=== PATIENT | female | born 1995 | race Caucasian/White ===

== ENCOUNTER 2019-03-28 17:30 | Emergency (ER) | payer MEDICAID, SELFPAY ==
[2019-03-28 17:32] VITALS: BP 162/108; PULSE 90; RESP 16; TEMP 37.1; O2SAT 99; BMI 23.6
[2019-03-28 18:04] LABS: Add Urine Microscopic? NO
[2019-03-28 18:11] LABS: HCG Qualitative Urine. Negative (Negative)
[2019-03-28 18:14] LABS: Bilirubin Urine Neg (NEGATIVE); Blood Urine Neg (Negative); Glucose Urine UA Norm (Normal); Ketones Urine Negative (Negative); Leukocyte Esterase Urine Negative (Negative); Nitrate Urine Negative (Negative); Protein Urine Neg (Negative); Sulfosalicylic Acid Urine Negative; Urine Appearance Clear (CLEAR); Urine Color Yellow (Yellow); Urobilinogen Urine Norm (Negative); pH Urine 8 (5-7)
[2019-03-28 18:25] LABS: Basophils % 0.4 %; Eosinophils % 0.1 %; Hematocrit 41.2 % (37.0-47.0); Hemoglobin 13.4 g/dL (11.5-15.3); Lymphocytes # 0.6 10^3/uL (0.8-4.8); Lymphocytes % 7.7 %; Mean Corpuscular HGB Conc 32.5 g/dL (30.0-36.0); Mean Corpuscular Hemoglobin 27.2 pg (28.0-34.0); Mean Corpuscular Volume 83.6 fL (81-99); Monocytes # 0.4 10^3/uL (0.2-0.9); Monocytes % 4.3 %; Neutrophils # 7.3 10^3/uL (1.8-7.7); Neutrophils % 87.3 %; Nucleated Red Blood Cells % 0 %; Platelet Count 226 10^3/cmm (130-400); Red Blood Count 4.93 10^6/uL (4.1-5.3); Red Cell Distribution Width 14.3 % (12.1-15.1); White Blood Count 8.4 10^3/uL (4.0-10.0)
[2019-03-28 18:38] LABS: Alanine Aminotransferase 19 U/L (0-33); Albumin Level 4.5 g/dL (3.5-5.2); Alkaline Phosphatase 92 IU/L (35-105); Anion Gap 15.9 (5-19); Aspartate Amino Transferase 21 U/L (0-32); Blood Urea Nitrogen 4 mg/dL (6-20); Calcium 9.3 mg/dL (8.5-10.5); Carbon Dioxide 25 mmol/L (22-29); Chloride 101 mmol/L (98-107); Glomerular Filtration Rate 121.8 mL/min (90-130); Glucose 115 mg/dL (74-109); Lipase 8 U/L (13-60); Potassium 3.9 mmol/L (3.5-5.1); Sodium 138 mmol/L (136-145); Total Bilirubin 0.3 mg/dL (0.15-1.2); Total Protein 7.5 g/dL (6.6-8.7)
--- NOTE | 2019-03-28 18:54 | ED_ITS ---
HPI - General Adult General: Chief complaint: Abdominal Pain Stated complaint: Fever/n/v with blood Time Seen by Provider: 03/28/19 18:48 History of Present Illness: HPI narrative: Patient is been around child and other people over the last few days has had stomach flu and she presents with the same signs and symptoms. Patient does not have any abdominal pain presently but that she did throw up 3-4 times a day. Feels better now. complaint: ge Onset (ago): hour(s) Location: abdomen Radiation: non-radiation Severity: mild Exacerbating factors: none Associated symptoms: Reports nausea and vomiting (Vomited [address] ringy blood in it but that is now resolved patient feels much better now); Deny chest pain, dyspnea, headache(s) or rash Treatments prior to arrival: none Review of Systems Const: Denies: fever, chills or body aches Eyes: Denies: change in vision or blurry vision ENMT: Denies: throat pain or nasal congestion Card: Denies: chest pain or shortness of breath on exertion Resp: Denies: shortness of breath, productive cough or non-productive cough GI: Reports: nausea and vomiting (Vomited 1 time and had some stringy blood in it but that is now resolved patient feels much better now); Denies: abdominal pain Musc: Denies: extremity pain Skin/Breast: Denies: rash Neuro: Denies: headache Psych: Denies: anxiety or depression Juan Jose/Lymph: Denies: easy bruising PFSH ED PFSH: Statuses (acute, chronic, etc) shown below reflect problem list status as previously entered and may not be historically accurate Social History Smoking and tobacco status: current every day smoker Physical Exam Const: COMMON NORMALS: no apparent distress, average body habitus and oriented x3 HENMT: COMMON NORMALS: normocephalic HEAD & SCALP: normal to inspection and normocephalic FACE & SINUS: normal facial exam Eye: COMMON NORMALS: conjunctivae normal GENERAL EYE: normal appearance of both eyes CONJUNCTIVA: Yes conjunctivae normal Neck/C-Spine: COMMON NORMALS: no JVD Chest: COMMONS NORMALS: inspection of chest normal Resp: COMMON NORMALS: normal respiratory effort and clear to auscultation bilaterally AUSCULTATION: clear to auscultation bilaterally Cardio: COMMON NORMALS: no JVD, regular rate and regular rhythm RATE: regular rate RHYTHM: regular rhythm GI: COMMON NORMALS: normal to inspection, nondistended, normoactive bowel sounds Extremity: COMMON NORMALS: normal to inspection and full ROM Neuro: COMMON NORMALS: oriented x3 Course Vital Signs: Vital signs: Vital Signs Temperature 98.8 F 03/28/19 17:32 Pulse Rate 90 03/28/19 17:32 Respiratory Rate 16 03/28/19 17:32 Blood Pressure 162/108 03/28/19 17:32 Pulse Oximetry 99 03/28/19 17:32 [facility] - General Adult Lab Data: Labs: Lab Results 03/28/19 03/28/19 03/28/19 Range/Units 18:00 18:00 18:13 WBC 8.4 (4.0-10.0) 10^3/ uL RBC 4.93 (4.1-5.3) 10^6/u L Hgb 13.4 (11.5-15.3) g/dL Hct 41.2 (37.0-47.0) % MCV 83.6 (81-99) fL MCH 27.2 L (28.0-34.0) pg MCHC 32.5 (30.0-36.0) g/dL RDW 14.3 (12.1-15.1) % Plt Count 226 (130-400) 10^3/c mm MPV 10.0 (7.4-10.4) fL Neut % (Auto) 87.3 % Lymph % (Auto) 7.7 % Morris % (Auto) 4.3 % Eos % (Auto) 0.1 % Baso % (Auto) 0.4 % Neut # (Auto) 7.3 (1.8-7.7) 10^3/u L Lymph # (Auto) 0.6 L (0.8-4.8) 10^3/u L Morris # (Auto) 0.4 (0.2-0.9) 10^3/u L Eos # (Auto) 0.0 (0.0-0.8) 10^3/u L Baso # (Auto) 0.0 (0.0-0.1) 10^3/u L Nucleated RBC % (a uto) 0 % Nucleated RBCs # 0.0 /100WBC Sodium (136-145) mmol/L Potassium (3.5-5.1) mmol/L Chloride (98-107) mmol/L Carbon Dioxide (22-29) mmol/L Anion Gap (5-19) BUN (6-20) mg/dL Creatinine (0.5-0.9) mg/dL GFR Calculation (90-130) mL/min Glucose (74-109) mg/dL Calcium (8.5-10.5) mg/dL Total Bilirubin (0.15-1.2) mg/dL AST (0-32) U/L ALT (0-33) U/L Alkaline Phosphata se (35-105) IU/L Total Protein (6.6-8.7) g/dL Albumin (3.5-5.2) g/dL Globulin (1.3-4.6) g/dL Lipase (13-60) U/L HCG, Qual Negative (Negative) Urine Color Yellow (Yellow) Urine Appearance Clear (CLEAR) Urine pH 8 H (5-7) Ur Specific Gravit y 1.010 (1.005-1.030) Urine Protein Neg (Negative) Urine Glucose (UA) Norm (Normal) Urine Ketones Negative (Negative) Urine Occult Blood Neg (Negative) Urine Nitrate Negative (Negative) Urine Bilirubin Neg (NEGATIVE) Prot Sulfosalicyli c Acd Negative Urine Urobilinogen Norm (Negative) mg/dL Ur Leukocyte Marry ase Negative (Negative) 03/28/19 Range/Units 18:13 WBC (4.0-10.0) 10^3/ uL RBC (4.1-5.3) 10^6/u L Hgb (11.5-15.3) g/dL Hct (37.0-47.0) % MCV (81-99) fL MCH (28.0-34.0) pg MCHC (30.0-36.0) g/dL RDW (12.1-15.1) % Plt Count (130-400) 10^3/c mm MPV (7.4-10.4) fL Neut % (Auto) % Lymph % (Auto) % Morris % (Auto) % Eos % (Auto) % Baso % (Auto) % Neut # (Auto) (1.8-7.7) 10^3/u L Lymph # (Auto) (0.8-4.8) 10^3/u L Morris # (Auto) (0.2-0.9) 10^3/u L Eos # (Auto) (0.0-0.8) 10^3/u L Baso # (Auto) (0.0-0.1) 10^3/u L Nucleated RBC % (a uto) % Nucleated RBCs # /100WBC Sodium 138 (136-145) mmol/L Potassium 3.9 (3.5-5.1) mmol/L Chloride 101 (98-107) mmol/L Carbon Dioxide 25 (22-29) mmol/L Anion Gap 15.9 (5-19) BUN 4 L (6-20) mg/dL Creatinine 0.6 (0.5-0.9) mg/dL GFR Calculation 121.8 (90-130) mL/min Glucose 115 H (74-109) mg/dL Calcium 9.3 (8.5-10.5) mg/dL Total Bilirubin 0.3 (0.15-1.2) mg/dL AST 21 (0-32) U/L ALT 19 (0-33) U/L Alkaline Phosphata se 92 (35-105) IU/L Total Protein 7.5 (6.6-8.7) g/dL Albumin 4.5 (3.5-5.2) g/dL Globulin 3.0 (1.3-4.6) g/dL Lipase 8 L (13-60) U/L HCG, Qual (Negative) Urine Color (Yellow) Urine Appearance (CLEAR) Urine pH (5-7) Ur Specific Gravit y (1.005-1.030) Urine Protein (Negative) Urine Glucose (UA) (Normal) Urine Ketones (Negative) Urine Occult Blood (Negative) Urine Nitrate (Negative) Urine Bilirubin (NEGATIVE) Prot Sulfosalicyli c Acd Urine Urobilinogen (Negative) mg/dL Ur Leukocyte Marry ase (Negative) Discharge Plan Discharge Patient Disposition: Home, Self-Care Clinical Impression: Gastroenteritis Condition: Stable Prescriptions: New ondansetron 8 mg tablet,disintegrating 8 mg PO Q8H PRN (Reason: nausea and vomiting) 3 Days Qty: 10 RF: 0 Discharge Orders: Discharge Order (Routine); Ordered 03/28/19 Ordered By: Bello Burns Referrals: Edith Sullivan MD [Family Provider] - Discharge Diet: Advance as tolerated Discharge Activity: Increase activity as tolerated Patient Instructions: Gastroenteritis (ED) Activity Restrictions/Additional Instructions: Follow-up with medical provider as directed. Take medications as prescribed. Return to the ER or your medical provider if condition worsens. Please read and understand discharge instructions. If any questions ask please. Increase fluids slowly. Coding Level of Care Code ED Gift Wrapper for Mary Jimenez
[2019-03-28 19:04] VITALS: BP 122/68; PULSE 78; RESP 18; O2SAT 96
== END 2019-03-28 19:05 | disposition home or self-care (01) ==
PROVIDERS: Emergency Medicine; Emergency Provider Nurse Practitioner Family; Family Provider Family Medicine
DX: K52.9 Noninfective gastroenteritis and colitis, unspecified (principal); F17.210 Nicotine dependence, cigarettes, uncomplicated
CPT/HCPCS: 36415; 80053; 81003; 81025; 83690; 85025; 99282; 99283

== ENCOUNTER → 2019-04-24 14:06 | Outpatient (BNVA) | payer MEDICAID, SELFPAY | PROVIDERS: Family Provider Family Medicine; Referring Provider Registered Nurse; Visit Provider Specialist | DX: M25.522 Pain in left elbow (principal) | CPT/HCPCS: 73080 ==

== ENCOUNTER 2019-08-13 18:09 | Emergency (ER) | payer MEDICAID, SELFPAY ==
[2019-08-13 18:15] VITALS: BP 164/120; PULSE 105; RESP 18; TEMP 36.7; O2SAT 97; BMI 25.0
--- NOTE | 2019-08-13 18:36 | ED_ITS ---
HPI - Skin/Abscess/Foreign Bdy General: Chief complaint: Skin/Abscess/Foreign Body Stated complaint: right eye swollen shut Time Seen by Provider: 08/13/19 18:21 History of Present Illness: HPI narrative: 23-year-old female with a history of staph infections presents with right-sided forehead and eyelid swelling. She states that she had a hard knot formed on her right side of her forehead a few days ago. She saw a nurse practitioner and was placed on some Bactrim for likely staph infection. She said it began to drain last night. This afternoon she began to have significant swelling of her eyelid just inferior to the abscess drainage. She notes that she had been on steroids, and just stopped yesterday, and that she had been using heat to draw out the infection. No fever. No vomiting. MD complaint: rash and abscess/boil Onset (ago): day(s) Location: face Associated symptoms: Deny chills, fever(s), nausea or vomiting Review of Systems Const: Denies: fever(s) or chills Eyes: Denies: change in vision or blurry vision ENMT: Denies: swelling of lips/tongue, bleeding gums, change in hearing, e pistaxis or sinus pain Card: Denies: chest pain, palpitations or irregular heart rhythm Resp: Denies: dyspnea, productive cough, non-productive cough or wheezing GI: Denies: abdominal pain, nausea or vomiting : Denies: dysuria Musc: Denies: neck pain Skin/Breast: Reports: rash and erythema; Denies: pruritus Neuro: Denies: headache(s), dizziness or vertigo Psych: Denies: anxiety PFS ED PFSH: Medical History (Updated 08/13/19 @ 19:04 by Guillermo Kiser DO) Olecranon bursitis of left elbow Social History Smoking and tobacco status: current every day smoker Physical Exam Const: GENERAL APPEARANCE: well developed ORIENTATION/CONSCIOUSNESS: Yes oriented to person, Yes oriented to place and Yes oriented to time HENMT: COMMON NORMALS: normocephalic, external ears normal and Normal external nose present HEAD & SCALP: normocephalic; no scalp tenderness FACE & SINUS: normal facial exam NOSE: Normal external nose present and No nasal discharge present EXTERNAL EAR: Yes external ears normal MOUTH: tongue normal TEETH & GINGIVA: Yes abnormal tooth and associated gingiva THROAT: posterior oropharynx normal; no peritonsillar mass Eye: COMMON NORMALS: Equal, round and reactive pupils present, EOMs intact bilaterally and conjunctivae normal EYELID: eyelid abnormality right upper eyelid (Significant swelling. Minimal tenderness no redness or streaking.) CONJUNCTIVA: Yes conjunctivae normal PUPIL: Yes Equal, round and reactive pupils present Neck/C-Spine: COMMON NORMALS: full ROM GENERAL: No tracheal deviation Chest: COMMONS NORMALS: normal inspection of the chest CHEST: No tenderness Resp: COMMON NORMALS: clear to auscultation bilaterally EFFORT & INSPECTION: No tachypneic, No respiratory distress, No retractions, No uses accessory muscles and No tracheal deviation AUSCULTATION: clear to auscultation bilaterally, no rhonchi, no wheezes and lung sounds not diminished Cardio: COMMON NORMALS: regular rate and regular rhythm RATE: regular rate RHYTHM: regular rhythm HEART SOUNDS: no murmurs PERIPHERAL PULSES: radial pulses present GI: INSPECTION: No abdominal distension AUSCULTATION: No Hyperactive bowel sounds present and No Hypoactive bowel sounds present PALPATION: No Rigid due to palpation Neuro: SENSORIUM/ORIENTATION: Yes oriented to person, Yes oriented to place and Yes oriented to time Psych: COMMON NORMALS: mental status grossly normal Skin: GENERAL SKIN EXAM: other (Open draining abscess to right forehead, good fluctuance, little induration, no streaking. Exam of the eye reveals a normal conjunctive a and sclera. There is no pain with extraocular movements. Her vision on that side is normal.) Course Vital Signs: Vital signs: Vital Signs Temperature 98.1 F 08/13/19 18:15 Pulse Rate 105 H 08/13/19 18:15 Respiratory Rate 16 08/13/19 19:25 Blood Pressure 164/120 08/13/19 18:15 Pulse Oximetry 97 08/13/19 18:15 MDM - Skin/Abscess/Foreign Bdy MDM Narrative: Medical decision making narrative: Drainage sent for culture. We will add doxycycline to her Bactrim she started as an outpatient. Steroids for swelling. She was told to use ice packs for the swelling of the eyelid as well. She knows to return for worsening symptoms, especially vision changes or pain with eye movement. Discharge Plan Discharge Patient Disposition: Home, Self-Care Clinical Impression: Abscess of skin or subcutaneous tissue Qualifiers: Site of cutaneous abscess: face Qualified Code(s): L02.01 - Cutaneous abscess of face Condition: Stable Prescriptions: New doxycycline hyclate 100 mg capsule 100 mg PO Q12H 10 Days Qty: 20 RF: 0 Medrol (Mike) 4 mg tablets,dose pack See Rx Instructions .ROUTE .COMPLEX Qty: 21 RF: 0 No Action buprenorphine HCl 8 mg tablet, sublingual 8 mg SUBLINGUAL DAILY RF: 0 Discharge Orders: Discharge Order (Routine); Ordered 08/13/19 Ordered By: Guillermo Kiser Referrals: Edith Sullivan MD [Primary Care Provider] - Radha Bailey FNP [Referring] - 4-7 days Discharge Diet: Usual diet Discharge Activity: Resume usual activity Patient Instructions: Abscess (ED) Activity Restrictions/Additional Instructions: Return for worsening swelling of her eyelid despite treatment, streaking redness, fever greater than 100, impaired vision, pain with eye movements, other concerning symptoms. Discharge Date/Time: 08/13/19 19:25 Coding Level of Care Code ED Diesel Tractor Operator for Tobiasg Fwd Exam Comprehensive
[2019-08-13] MEDS: dexamethasone 10 mg/mL INJ 8 MG IM (19:13)
[2019-08-13] MEDS: doxycycline 100 mg Tablet PO (19:14)
[2019-08-13 19:25] VITALS: RESP 16
== END 2019-08-13 19:25 | disposition home or self-care (01) ==
PROVIDERS: Emergency Provider Emergency Medicine; PCP Family Medicine
DX: L02.01 Cutaneous abscess of face (principal); F17.210 Nicotine dependence, cigarettes, uncomplicated
CPT/HCPCS: 12345; 87070; 87075; 87077; 87186; 87205; 96372; 99282; 99283; J1100

== ENCOUNTER → 2019-09-04 08:24 | Outpatient (BNVA) | payer MEDICAID, SELFPAY | PROVIDERS: PCP Registered Nurse; Referring Provider Registered Nurse; Visit Provider Specialist | DX: M70.22 Olecranon bursitis, left elbow (principal); G62.9 Polyneuropathy, unspecified | CPT/HCPCS: 95909 ==

== ENCOUNTER → 2019-11-08 09:29 | Outpatient (BNVA) | payer MEDICAID, SELFPAY | PROVIDERS: PCP Registered Nurse; Referring Provider Registered Nurse; Visit Provider Specialist | DX: G62.9 Polyneuropathy, unspecified (principal); G61.81 Chronic inflammatory demyelinating polyneuritis; F17.210 Nicotine dependence, cigarettes, uncomplicated | CPT/HCPCS: 99205 ==

== ENCOUNTER 2019-11-30 14:03 | Outpatient (CLI) | payer MEDICAID, SELFPAY ==
--- NOTE | 2019-11-30 14:10 | MR_ITS ---
WS: [id number] MRI LEFT FOOT without CONTRAST. COMPARISON: None Multiplanar, multisequence imaging is performed without contrast. Patient was unable to complete the examination with contrast due to back pain. There is increased T2 signal lateral to the cuboid and proximal fifth metatarsal which extends over a length of 1.7 cm and a width of 0.8 cm. The underlying cuboid and proximal fifth metatarsal marrow s ignal is normal. There is no edema. The remaining bones of the foot are also normal. No fluid along t he tendon sheaths. No joint effusion. MR/MR foot LT wo con* [id number] IMPRESSION: 1. Patient was unable to complete examination with contrast. Therefore, osteom yelitis cannot be completely excluded. 2. There is a soft tissue ulcer/inflammatory process just lateral to the cuboi d and proximal fifth metatarsal measuring 1.7 x 0.8 cm. 3. No edema within the adjacent osseous structures.
== END 2019-11-30 14:04 | disposition home or self-care (01) ==
LOC: RADSHAW 14:09
PROVIDERS: PCP Registered Nurse; Visit Provider Registered Nurse
DX: L02.612 Cutaneous abscess of left foot (principal); L97.529 Non-pressure chronic ulcer of other part of left foot with unspecified severity
CPT/HCPCS: 73718

== ENCOUNTER 2019-12-13 13:01 | Outpatient (CLI) | payer MEDICAID, SELFPAY | END 2019-12-13 13:02 | disposition home or self-care (01) | LOC: WOUND 13:01 | PROVIDERS: PCP Registered Nurse; Visit Provider Nurse Practitioner Family | DX: L97.322 Non-pressure chronic ulcer of left ankle with fat layer exposed (principal) | CPT/HCPCS: 11042; G0463 ==

== ENCOUNTER 2019-12-20 13:20 | Outpatient (CLI) | payer MEDICAID, SELFPAY | END 2019-12-20 13:21 | disposition home or self-care (01) | LOC: WOUND 13:21 | PROVIDERS: PCP Registered Nurse; Visit Provider Thoracic Surgery (Cardiothoracic Vascular Surgery) | DX: L97.522 Non-pressure chronic ulcer of other part of left foot with fat layer exposed (principal) | CPT/HCPCS: 11042 ==

== ENCOUNTER 2019-12-27 13:50 | Outpatient (CLI) | payer MEDICAID, SELFPAY | END 2019-12-27 13:51 | disposition home or self-care (01) | LOC: WOUND 13:51 | PROVIDERS: PCP Registered Nurse; Visit Provider Thoracic Surgery (Cardiothoracic Vascular Surgery) | DX: L97.522 Non-pressure chronic ulcer of other part of left foot with fat layer exposed (principal) | CPT/HCPCS: 11042 ==

== ENCOUNTER 2020-01-09 11:22 | Outpatient (CLI) | payer MEDICAID, SELFPAY | END 2020-01-09 11:23 | disposition home or self-care (01) | LOC: WOUND 11:22 | PROVIDERS: PCP Registered Nurse; Visit Provider Thoracic Surgery (Cardiothoracic Vascular Surgery) | DX: L97.522 Non-pressure chronic ulcer of other part of left foot with fat layer exposed (principal) | CPT/HCPCS: 11042 ==

== ENCOUNTER 2020-01-17 14:05 | Outpatient (CLI) | payer MEDICAID, SELFPAY | END 2020-01-17 14:06 | disposition home or self-care (01) | LOC: WOUND 14:05 | PROVIDERS: PCP Registered Nurse; Visit Provider Nurse Practitioner Family | DX: L97.522 Non-pressure chronic ulcer of other part of left foot with fat layer exposed (principal) | CPT/HCPCS: 11042 ==

== ENCOUNTER 2020-02-07 09:46 | Outpatient (CLI) | payer MEDICAID, SELFPAY | END 2020-02-07 09:47 | disposition home or self-care (01) | LOC: WOUND 09:46 | PROVIDERS: PCP Registered Nurse; Visit Provider Nurse Practitioner Family | DX: L97.522 Non-pressure chronic ulcer of other part of left foot with fat layer exposed (principal) | CPT/HCPCS: 11042 ==

== ENCOUNTER 2020-02-14 10:18 | Outpatient (CLI) | payer MEDICAID, SELFPAY | END 2020-02-14 10:19 | disposition home or self-care (01) | LOC: WOUND 10:19 | PROVIDERS: PCP Registered Nurse; Visit Provider Thoracic Surgery (Cardiothoracic Vascular Surgery) | DX: L97.522 Non-pressure chronic ulcer of other part of left foot with fat layer exposed (principal) | CPT/HCPCS: 11042 ==

== ENCOUNTER 2020-02-28 10:33 | Outpatient (CLI) | payer MEDICAID, SELFPAY | END 2020-02-28 10:34 | disposition home or self-care (01) | LOC: WOUND 10:33 | PROVIDERS: PCP Registered Nurse; Visit Provider Nurse Practitioner Family | DX: Z09 Encounter for follow-up examination after completed treatment for conditions other than malignant neoplasm (principal) | CPT/HCPCS: 99212 ==

== ENCOUNTER → 2020-04-17 09:48 | Outpatient (BNVA) | payer MEDICAID, SELFPAY | PROVIDERS: PCP Registered Nurse; Visit Provider Specialist | DX: G61.81 Chronic inflammatory demyelinating polyneuritis (principal); F17.210 Nicotine dependence, cigarettes, uncomplicated | CPT/HCPCS: 99214 ==

== ENCOUNTER → 2020-06-18 08:01 | Outpatient (BNVA) | payer MEDICAID, SELFPAY | PROVIDERS: PCP Registered Nurse; Visit Provider Specialist | DX: G61.81 Chronic inflammatory demyelinating polyneuritis (principal); F17.210 Nicotine dependence, cigarettes, uncomplicated | CPT/HCPCS: 99214 ==

== ENCOUNTER 2022-01-28 19:13 | Emergency (ER) | payer MEDICAID, SELFPAY ==
[2022-01-28 19:25] VITALS: BMI 24.0
[2022-01-28 19:34] VITALS: BP 210/111; PULSE 94; RESP 18; TEMP 36.6; O2SAT 96
--- NOTE | 2022-01-28 20:01 | ED_ITS ---
HPI - Eye Problem General: Chief complaint: Eye Problems Stated complaint: Swollen Eyes History of Present Illness: 26-year-old female comes in today for complaints of swelling of the eyes. Patient was seen at an emergency room in [place] and was given dexamethasone and a dose of Benadryl p.o. Patient reported continued swelling of the eyes. Patient denies any other abnormalities. Patient does use make-up. 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 Patient had talked to her infusion nurse who recommended that she wash off all make up. Patient denies any fever or pain just some mild discomfort around the right eye where the swelling is the worst. Review of Systems Eyes: Reports: other (Periorbital swelling) [facility] ED PFSH: Medical History CIDP (chronic inflammatory demyelinating polyneuropathy) Hypertension Olecranon bursitis of left elbow Peripheral neuropathy Family History Other CAD (coronary artery disease) Hypertension Myocardial infarction Stroke Denies family history of Diabetes Social History Smoking and tobacco status: current every day smoker cigarettes Packs smoked per day: 1 Alcohol intake: never History of recent travel: No Physical Exam Const: COMMON NORMALS: alert HENMT: HEAD & SCALP: other (Facial swelling) NOSE: Normal nares present THROAT: posterior oropharynx normal Eye: PERIORBITAL: periorbital findings abnormal positive bilateral (Increased on the right) periorbital swelling Neck/C-Spine: COMMON NORMALS: full ROM Resp: COMMON NORMALS: normal respiratory effort and clear to auscultation bilaterally AUSCULTATION: clear to auscultation bilaterally Cardio: COMMON NORMALS: regular rate and regular rhythm RATE: regular rate RHYTHM: regular rhythm Extremity: COMMON NORMALS: full ROM Neuro: SENSORIUM/ORIENTATION: Yes alert Skin: COMMON NORMALS: turgor normal GENERAL SKIN EXAM: turgor normal Course ED course: 2049, 30 minutes after given diphenhydramine IM no changes were noted and swelling to the face, blood pressure remained elevated, and patient had some wheezing in lung dixon. I recommended 0.3 mg of epinephrine IM for concerns of anaphylaxis. Patient reported understanding agreed to plan. 2124, patient had some reduction in the swelling around the right eye. Patient reports no increase abnormality. Patient reports jitteriness has improved since receiving the epinephrine. Patient denies any chest pain or difficulty breathing. Lungs clear to auscultation. Vital Signs: Vital signs: Vital Signs Temperature 97.8 F 01/28/22 19:34 Pulse Rate 76 01/28/22 20:44 Respiratory Rate 18 01/28/22 20:44 Blood Pressure 179/108 01/28/22 20:44 Pulse Oximetry 98 01/28/22 20:44 Oxygen Delivery Me thod 01/28/22 20:44 MDM - Eye Problem Medical Decision Making 6-year-old female comes in today with worsening swelling around the eyes. Patient has been the first evaluated and treated at [place] ER with dexamethasone and Benadryl. Patient was coming home and had increasing swelling to the area around the face and eyes. On exam lungs had some wheezing, patient had some elevated blood pressure, and significant swelling to the face. No swelling was noted to the tongue and airway remained intact. Vital signs were normal except for elevation of blood pressure. Differential diagnosis includes anaphylaxis, allergic reaction, cellulitis. 50 mg of Benadryl was given IM and patient was monitored for 30 minutes without any improvement in symptoms. Patient was then given 0.3 mg of epinephrine IM. After 15 minutes patient had significantly reduced swelling to the eyes and face. Patient was monitored for an hour afterwards and no recurrence of swelling and continued improvement was noted. Patient was discharged home with prescription for epinephrine and recommended to follow-up with primary care. Discharge Plan Discharge Patient Disposition: Home Clinical Impression: Anaphylactic reaction Qualifiers: Encounter type: initial encounter Qualified Code(s): T78.2XXA - Anaphylactic shock, unspecified, initial encounter Condition: Stable Prescriptions: New epinephrine 0.3 mg/0.3 mL auto-injector 0.3 mg IM Q15M PRN (Reason: anaphylaxis) Qty: 2 0RF Rx Instructions: for 2 doses No Action buprenorphine HCl 8 mg tablet, sublingual 8 mg SUBLINGUAL DAILY ibuprofen [IBU] 600 mg tablet 600 mg PO Q8H PRN metoprolol tartrate 25 mg tablet 12.5 mg PO BID bumetanide 2 mg tablet 2 mg PO DAILY famotidine 20 mg tablet 20 mg PO BID prednisone 5 mg tablet 5 mg PO DAILY Qty: 30 0RF Rx Instructions: Take 1 tablet daily for one month prednisone 5 mg tablet See Rx Instructions .ROUTE .COMPLEX Qty: 15 0RF Rx Instructions: Take one tablet every other day (odd days) Xulane 150-35 mcg/24 hr patch weekly 1 patch TRANSDERMA Q7D Rx Instructions: apply once weekly for 3 weeks of a 4-week cycle potassium gluconate 595 mg (99 mg) tablet 595 mg PO BID multivitamin Tablet 1 tab PO DAILY lisinopril 5 mg tablet 5 mg PO DAILY Discharge Orders: Discharge ED (Routine); Ordered 01/28/22 Ordered By: Vamshi Sosa Referrals: Radha Bailey FNP [Primary Care Provider] - Discharge Diet: Usual diet Discharge Activity: Increase activity as tolerated Patient Instructions: Anaphylaxis (ED) Activity Restrictions/Additional Instructions: Continue with Benadryl as needed for itching and rash. Drink plenty of fluids. Follow-up with primary care for further instruction. Return to ER for worsening symptoms such as chest pain, increased shortness of breath, fever greater than 100.4, or new concerns. Coding Level of Care Code ED Insulation Worker Apprentice for Tobiasg Fwd Exam Comprehensive
[2022-01-28] MEDS: diphenhydrAMINE 50 mg/mL SDV 1mL IM (20:18)
[2022-01-28 20:44] VITALS: BP 179/108; PULSE 76; RESP 18; O2SAT 98
[2022-01-28] MEDS: EPINEPHrine 1 mg/mL INJ 0.3 MG IM (21:02)
== END 2022-01-28 21:55 | disposition home or self-care (01) ==
PROVIDERS: Emergency Provider Nurse Practitioner Family; PCP Registered Nurse
DX: T78.2XXA Anaphylactic shock, unspecified, initial encounter (principal); F17.210 Nicotine dependence, cigarettes, uncomplicated; I10 Essential (primary) hypertension; G61.81 Chronic inflammatory demyelinating polyneuritis
CPT/HCPCS: 96372; 99284; J0171; J1200

== ENCOUNTER 2022-01-29 07:16 | Emergency (ER) | payer MEDICAID, SELFPAY ==
[2022-01-29 07:29] VITALS: BP 171/108; PULSE 86; RESP 14; TEMP 36.9; O2SAT 97; BMI 24.0
[2022-01-29 07:33] VITALS: BP 173/110; PULSE 96; RESP 16; O2SAT 99
--- NOTE | 2022-01-29 08:13 | ED_ITS ---
HPI - Allergic Reaction General: Chief complaint: Allergic Reaction Stated complaint: Allergic reaction Time Seen by Provider: 01/29/22 07:17 Source: patient Mode of arrival: ambulatory Limitations: no limitations History of Present Illness: HPI narrative: 26-year-old female presents emergency room with swelling of her face. She is allergic reaction several days ago she was seen given epi subcu swelling is gone down she was discharged home she also agreed to go with a steroid at that time she has rebound swelling now just of the face no difficulty speaking or swallowing. She is been using some antihistamines no oral steroids. MD complaint: allergic reaction Onset (ago): day(s) Exposure: unknown Associated symptoms: Reports facial swelling; Deny abdominal pain, difficulty breathing, dysphagia, hoarseness, nausea, tongue swelling or vomiting Severity: moderate Treatment prior to arrival: benadryl, epinephrine and steroids Previous Allergic Reaction History: prior ED visit(s) Review of Systems Const: Denies: fever(s), chills, body aches, change in appetite, fatigue or malaise ENMT: Denies: throat pain, uvular edema, odynophagia or hoarseness Card: Denies: chest pain, palpitations, irregular heart rhythm, edema, dyspnea on exertion or orthopnea Resp: Denies: dyspnea, productive cough, non-productive cough, wheezing or stridor GI: Denies: abdominal pain, nausea, vomiting or dysphagia : Denies: flank pain, difficulty voiding, dysuria, urinary frequency or urinary urgency Musc: Denies: neck pain Skin/Breast: Denies: rash or pruritus All/Imm: Reports: facial swelling; Denies: tongue swelling PFS ED PFSH: Medical History CIDP (chronic inflammatory demyelinating polyneuropathy) Hypertension Olecranon bursitis of left elbow Peripheral neuropathy Family History Other CAD (coronary artery disease) Hypertension Myocardial infarction Stroke Denies family history of Diabetes Social History Smoking and tobacco status: current every day smoker cigarettes Packs smoked per day: 1 Alcohol intake: never History of recent travel: No Physical Exam Const: COMMON NORMALS: no acute distress GENERAL APPEARANCE: cooperative and comfortable ORIENTATION/CONSCIOUSNESS: Yes awake, Yes oriented to person, Yes oriented to place and Yes oriented to time HENMT: COMMON NORMALS: normocephalic, atraumatic and hearing grossly normal bilaterally HEAD & SCALP: normocephalic and atraumatic THROAT: no uvular edema Resp: COMMON NORMALS: normal respiratory effort, No retractions, No use of accessory muscles and clear to auscultation bilaterally AUSCULTATION: clear to auscultation bilaterally Cardio: COMMON NORMALS: regular rate, regular rhythm and No murmurs present (Cardio) RATE: regular rate RHYTHM: regular rhythm GI: COMMON NORMALS: Soft to palpation and No hepatosplenomegaly present AUSCULTATION: Yes normoactive bowel sounds PALPATION: Yes Soft to palpation, No Tenderness to palpation present (GI), No Guarding due to palpation present (GI) and Yes No hepatosplenomegaly present Extremity: COMMON NORMALS: normal to inspection, capillary refill normal, no clubbing, cyanosis or edema, no calf tenderness and no pedal edema Neuro: SENSORIUM/ORIENTATION: Yes oriented to person, Yes oriented to place and Yes oriented to time Skin: COMMON NORMALS: no rashes or lesions noted GENERAL SKIN EXAM: no rashes or lesions noted Course Vital Signs: Vital signs: Vital Signs Temperature 98.5 F 01/29/22 07:29 Pulse Rate 76 01/29/22 11:23 Respiratory Rate 16 01/29/22 11:23 Blood Pressure 162/96 01/29/22 11:23 Pulse Oximetry 99 01/29/22 11:23 Oxygen Delivery Me thod 01/29/22 07:29 MDM - Allergic Reaction Medical Decision Making Patient given more steroids and histamine she did have some decrease in her swelling. She has no respiratory compromise or difficulty swallowing hesitant to give her any appendectomy her blood pressure is already elevated make it would just lead to more rebound swelling. Recommend instead that she do scheduled antihistamines and a steroid taper follow-up with her primary care doctor return if is any difficulty speech swallowing or breathing Medical Records I reviewed the patient's medical records. Lab Data I reviewed the patient's lab results. Discharge Plan Discharge Patient Disposition: Home Clinical Impression: Contact dermatitis, Allergic reaction Condition: Stable Prescriptions: New prednisone 20 mg tablet 20 mg PO TID Qty: 15 0RF Rx Instructions: 1 p.o. 3 times daily x3 days, 1 p.o. twice daily x2 days, 1 p.o. daily x2 days hydroxyzine HCl 25 mg tablet 25 mg PO QID 5 Days Qty: 20 0RF No Action buprenorphine HCl 8 mg tablet, sublingual See Rx Instructions .ROUTE .COMPLEX Rx Instructions: 16 mg sublingually IN THE AM AND 8 MG IN THE PM ibuprofen [IBU] 600 mg tablet 600 mg PO Q8H PRN (Reason: Pain) metoprolol tartrate 25 mg tablet 25 mg PO BID famotidine 20 mg tablet 20 mg PO BID Xulane 150-35 mcg/24 hr patch weekly 1 patch TRANSDERMA Q7D Rx Instructions: apply once weekly for 3 weeks of a 4-week cycle epinephrine 0.3 mg/0.3 mL auto-injector 0.3 mg IM Q15M PRN (Reason: anaphylaxis) Qty: 2 0RF Rx Instructions: for 2 doses lisinopril 10 mg tablet 10 mg PO BID albuterol sulfate 90 mcg/actuation Hfa Aerosol Inhaler 2 puff INHALATION QID PRN (Reason: Shortness Of Breath Or Wheezing) acetaminophen 325 mg Capsule 650 mg PO QID PRN (Reason: Pain) Octagam See Rx Instructions .ROUTE .COMPLEX Rx Instructions: DIRECTED EVERY OTHER 6 WEEKS Discharge Orders: Discharge ED (Routine); Ordered 01/29/22 Ordered By: Nguyễn Marshall Referrals: Radha Bailey FNP [Primary Care Provider] - Discharge Diet: Usual diet Discharge Activity: Increase activity as tolerated Patient Instructions: Opioid Safety, Pain Management Activity Restrictions/Additional Instructions: You were seen today for an allergic reaction. Your allergic reaction is limited to the upper portion of the face with facial swelling around the eyes and the upper lip. On your exam and vitals there was no compromise of breathing. There was some improvement with administration of IV steroids and antihistamines. Recommend that you use scheduled antihistamines 1 tablet 4 times daily for the next 5 days and a steroid taper beginning at with the oral pills tomorrow. Follow-up with your primary care doctor within the week. Return if you have worsening problems or any difficulty breathing or swallowing Coding Level of Care Code ED Biology Laboratory Assistant for Mary Fwd Exam Detailed
[2022-01-29] MEDS: dexamethasone 10 mg/mL INJ IVP (08:43)
[2022-01-29] MEDS: diphenhydrAMINE 50 mg/mL SDV 1mL IVP (08:43)
[2022-01-29 09:33] VITALS: BP 147/85; PULSE 63; RESP 16; O2SAT 97
[2022-01-29 11:23] VITALS: BP 162/96; PULSE 76; RESP 16; O2SAT 99
== END 2022-01-29 11:25 | disposition home or self-care (01) ==
PROVIDERS: Emergency Provider Family Medicine; PCP Registered Nurse
DX: L23.9 Allergic contact dermatitis, unspecified cause (principal)
CPT/HCPCS: 96374; 96375; 99284; J1100; J1200

== ENCOUNTER → 2023-03-23 10:09 | Outpatient (BNVA) | payer MEDICARE, MEDICAID, SELFPAY | PROVIDERS: PCP Registered Nurse; Visit Provider Podiatrist Foot & Ankle Surgery | DX: B07.9 Viral wart, unspecified; L85.3 Xerosis cutis | CPT/HCPCS: 17110 ==

== ENCOUNTER → 2023-04-06 10:10 | Outpatient (BNVA) | payer MEDICARE, MEDICAID, SELFPAY | PROVIDERS: PCP Registered Nurse; Visit Provider Podiatrist Foot & Ankle Surgery | DX: B07.9 Viral wart, unspecified; L85.3 Xerosis cutis | CPT/HCPCS: 99213 ==

== ENCOUNTER → 2023-05-06 08:40 | Outpatient (BNVA) | payer MEDICARE, MEDICAID, SELFPAY | PROVIDERS: PCP Registered Nurse; Visit Provider Podiatrist Foot & Ankle Surgery | DX: B07.9 Viral wart, unspecified (principal); L85.3 Xerosis cutis; L84 Corns and callosities | CPT/HCPCS: 17110 ==

== ENCOUNTER → 2023-05-27 08:40 | Outpatient (BNVA) | payer MEDICARE, MEDICAID, SELFPAY | PROVIDERS: PCP Registered Nurse; Visit Provider Podiatrist Foot & Ankle Surgery | DX: B07.9 Viral wart, unspecified (principal); L85.3 Xerosis cutis; L84 Corns and callosities | CPT/HCPCS: 17110 ==

== ENCOUNTER → 2023-06-21 10:05 | Outpatient (BNVA) | payer MEDICARE, MEDICAID, SELFPAY | PROVIDERS: PCP Registered Nurse; Referring Provider Nurse Practitioner Family; Visit Provider Specialist | DX: M70.22 Olecranon bursitis, left elbow (principal); M25.522 Pain in left elbow | CPT/HCPCS: 20605; 73080; 99204 ==

== ENCOUNTER → 2023-06-22 13:05 | Outpatient (BNVA) | payer MEDICARE, MEDICAID, SELFPAY | PROVIDERS: PCP Registered Nurse; Visit Provider Podiatrist Foot & Ankle Surgery | DX: B07.9 Viral wart, unspecified (principal); L85.3 Xerosis cutis | CPT/HCPCS: 99213 ==